=== PATIENT | male | born 1995 | race Caucasian/White ===

== ENCOUNTER 2016-12-01 08:44 | Emergency (ER) | payer BC ==
[2016-12-01] MEDS ORDERED: Proparacaine 0.5% Ophth Soln 15 ML Bottle EYELF ONE (09:05)
--- NOTE | 2016-12-01 09:24 | EDM.PDOC ---
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 No foreign body sensation, when he woke up this morning he does have foreign body sensation left eye sclera is injected no light sensitivity or visual change no double vision no eye pain No fever nausea vomiting chills sweats Review of systems: As per history of present illness and below otherwise all systems reviewed and negative. Past medical history: As per history of present illness and as reviewed below otherwise noncontributory. Surgical history: As per history of present illness and as reviewed below otherwise noncontributory. Social history: No reported history of drug or alcohol abuse. Family history: As per history of present illness and as reviewed below otherwise noncontributory. Physical exam: HEENT: Atraumatic, normocephalic, pupils reactive, negative for conjunctival pallor or scleral icterus, mucous membranes moist, throat clear, neck supple, nontender, trachea midline. Eye exam with Wood's lamp and fluorescein right eye is within normal limits left eye injected sclera there is slight corneal abrasion at 12:00 there is no foreign body appreciated no hyphema Lungs: Clear to auscultation, breath sounds equal bilaterally, chest nontender. Heart: S1S2, regular, negative for clicks, rubs, or JVD. Abdomen: Soft, nondistended, nontender. Negative for masses or hepatosplenomegaly. Negative for costovertebral tenderness. Pelvis: Stable nontender. Genitourinary: Deferred. Rectal: Deferred. Extremities: Atraumatic, negative for cords or calf pain. Neurovascular unremarkable. Neuro: Awake, alert, oriented. Cranial nerves II through XII unremarkable. Cerebellum unremarkable. Motor and sensory unremarkable throughout. Exam nonfocal. Diagnostics: []Wood's lamp chlorazene Therapeutics: []Erythromycin ointment 4 times a day 7 days Return if symptoms persist or worsen Or follow-up with ophthalmology on Sunday Impression: []Corneal abrasion on the left Definitive disposition and diagnosis as appropriate pending reevaluation and review of above. left eye Pain Score (Numeric/FACES): 4 - Related Data Allergies Allergy/AdvReac Type Severity Reaction Status Date / Time Penicillins Allergy Hives Verified 12/01/16 08:52 Home Meds: Home Meds Fish Oil/[place]-3 Fatty Acids [Fish Oil 1,000 MG] 1 tab PO BID 12/01/16 [History] Past Medical History - Past Health History Medical/Surgical History: Denies Medical/Surgical History Endocrine/Metabolic History: Reports: Diabetes, Type II - Past Surgical History GI Surgical History: Reports: Cholecystectomy Social & Family History - Family History Family Medical History: Noncontributory - Tobacco Use Smoking Status *Q: Current Every Day Smoker Years of Tobacco use: 3 Packs/Tins Daily: 1 - Recreational Drug Use Recreational Drug Use: No ED ROS GENERAL - Review of Systems Review Of Systems: ROS reveals no pertinent complaints other than HPI. ED EXAM GENERAL W FULL EYE - Physical Exam Exam: See Below Course - Vital Signs Last Recorded V/S: Last Vital Signs Temp 36.4 C 12/01/16 08:44 Pulse 92 12/01/16 08:44 Resp 18 12/01/16 08:44 BP 138/82 12/01/16 08:44 Pulse Ox 95 12/01/16 08:44 - Orders/Labs/Meds Meds: Medications Discontinued Medications Generic Name Dose Route Start Last Admin Trade Name Joey PRN Reason Stop Dose Admin Proparacaine HCl 2 ml 12/01/16 09:05 Proparacaine 0.5% Ophth Soln EYELF 12/01/16 09:06 ONETIME ONE Departure - Departure Time of Disposition: 09:22 Disposition: Home, Self-Care 01 Condition: Good Clinical Impression: Corneal abrasion - Discharge Information Referrals: PCP,None [Primary Care Provider] - Additional Instructions: Again I do not see any foreign body or appreciate a foreign body I do find a corneal abrasion Erythromycin ointment 4 times daily 7-10 days Symptoms persist or worsen over the weekend return to ER such as light sensitivity or revision double vision or pain associated with the eye would prompt her return to the emergency room Otherwise follow-up with ophthalmology on Sunday for reexamination [address] [id number] The following information is given to patients seen in the emergency department who are being discharged to home. This information is to outline your options for follow-up care. We provide all patients seen in our emergency department with a follow-up referral. The need for follow-up, as well as the timing and circumstances, are variable depending upon the specifics of your emergency department visit. If you don't have a primary care physician on staff, we will provide you with a referral. We always advise you to contact your personal physician following an emergency department visit to inform them of the circumstance of the visit and for follow-up with them and/or the need for any referrals to a consulting specialist. The emergency department will also refer you to a specialist when appropriate. This referral assures that you have the opportunity for follow-up care with a specialist. All of these measure are taken in an effort to provide you with optimal care, which includes your follow-up. Under all circumstances we always encourage you to contact your private physician who remains a resource for coordinating your care. When calling for follow-up care, please make the office aware that this follow-up is from your recent emergency room visit. If for any reason you are refused follow-up, please contact the [facility] emergency department at and asked to speak to the emergency department charge nurse.
[2016-12-01] MEDS ORDERED: Erythromycin Base 0.5% Ophth Oint 1 GM Tube EYEBOTH ONE (09:33)
== END 2016-12-01 09:35 | disposition home or self-care (01) ==
LOC: MW.ED 08:44
DX: S05.02XA Injury of conjunctiva and corneal abrasion without foreign body, left eye, initial encounter (principal); E11.9 Type 2 diabetes mellitus without complications; F17.210 Nicotine dependence, cigarettes, uncomplicated; Z88.0 Allergy status to penicillin; X58.XXXA Exposure to other specified factors, initial encounter
CPT/HCPCS: 99283; A9270